=== PATIENT | male | born 1970 | race Caucasian/White ===

== ENCOUNTER 2025-06-03 08:46 | Outpatient (CLI) | payer OTHER | END 2025-06-03 08:47 | disposition home or self-care (01) | LOC: CSHMRI 08:46 | PROVIDERS: ATTEND Internal Medicine | DX: R79.89 Other specified abnormal findings of blood chemistry (principal); F04 Amnestic disorder due to known physiological condition; K82.8 Other specified diseases of gallbladder; K80.20 Calculus of gallbladder without cholecystitis without obstruction; K83.8 Other specified diseases of biliary tract; G31.9 Degenerative disease of nervous system, unspecified | CPT/HCPCS: 70551; 76705 ==

== ENCOUNTER → 2025-06-24 | Day surgery (SDC) | payer OTHER ==
[~2025-06-24] MED LIST: PROPOFOL 40 ML ONE
[2025-06-24 07:29] VITALS: BP 136/94; TEMP 97.9
== END ==
LOC: CSHSDC 06:35
PROVIDERS: ATTEND Specialist
PROC: 5A2204Z Restoration of Cardiac Rhythm, Single (ICD-10-PCS; principal; 2025-06-24)
PROC: B24BZZ4 Ultrasonography of Heart with Aorta, Transesophageal (ICD-10-PCS; principal; 2025-06-24)
DX: I48.91 Unspecified atrial fibrillation (principal); I10 Essential (primary) hypertension; Z88.0 Allergy status to penicillin; Z88.6 Allergy status to analgesic agent; Z79.899 Other long term (current) drug therapy
CPT/HCPCS: 92960; 93005; 93010; 93312; J2704

== ENCOUNTER 2025-07-02 03:00 | Emergency (ER) | payer OTHER ==
[2025-07-02 03:30] LABS: ALT (SGPT) 19 U/L (Less than 45); AST (SGOT) 34 U/L (11-34); Albumin 2.5 g/dL (3.1-4.5); Alkaline Phosphatase 65 U/L (40-110); Anion Gap 13 mmol/L (10-20); BUN (Urea Nitrogen) 16 mg/dL (8.4-25.7); Bilirubin, Total 2.5 mg/dL (0.3-1.2); Calc. Creatinine Clearance 0 mL/min (70-130); Calcium 7.8 mg/dL (7.8-10.44); Carbon Dioxide 21 mmol/L (22-29); Chloride 93 mmol/L (98-107); Globulin 3.5 g/dL (2.4-3.5); Glucose 96 mg/dL (70-105); Potassium 4.4 mmol/L (3.5-5.1); Sodium 123 mmol/L (136-145)
[2025-07-02 03:36] LABS: Troponin I Less than 0.010 ng/mL (< 0.028)
[2025-07-02 03:44] LABS: Burr Cells SLIGHT = 2-5 cells (100X) (0-1/hpf); Platelet Adequacy Comment Appears Decreased; Platelet Count 60 10x3/uL (150-450); Poikilocytosis SLIGHT = 6-15 cells (100X) (0-5/hpf); Target Cells SLIGHT = 2-5 cells (100X) (0-1/hpf)
[2025-07-02 03:45] LABS: #Basophils 0.06 10x3/uL (0.0-0.2); #Eosinophils 0.05 10x3/uL (0.0-0.5); #Monocytes 2.62 10x3/uL (0.0-1.1); #Neutrophils 9.57 10x3/uL (1.5-8.4); %Basophils 0.4 % (0.0-2.0); %Eosinophils 0.4 % (0.0-6.0); %Lymphocytes 8.5 % (18.0-47.0); %Monocytes 19.3 % (0.0-10.0); %Neutrophils 70.5 % (40.0-75.0); Hematocrit 28.9 % (38.8-50.0); Hemoglobin 10.1 g/dL (13.5-17.5); Mean Corpuscular Hemoglobin 35.7 pg (27.0-33.0); Mean Corpuscular Volume 102.1 fL (81.2-95.1); Red Blood Cell (RBC) Count 2.83 10x6/uL (4.32-5.72); White Blood Cell (WBC) Count 13.57 10x3/uL (3.5-10.5)
[2025-07-02] MEDS ORDERED: Droperidol 5 MG/2 ML VIAL ONE (05:11)
[2025-07-02 05:15] LABS: Anion Gap 9 mmol/L (10-20); BUN (Urea Nitrogen) 16 mg/dL (8.4-25.7); Calc. Creatinine Clearance 0 mL/min (70-130); Calcium 7.6 mg/dL (7.8-10.44); Carbon Dioxide 22 mmol/L (22-29); Chloride 94 mmol/L (98-107); Glucose 85 mg/dL (70-105); Lipase 12 U/L (8-78); Potassium 4.1 mmol/L (3.5-5.1); Sodium 121 mmol/L (136-145)
[2025-07-02 05:34] LABS: Glucose, Urine (Dipstick) Normal (Negative); Leukocyte 25 (Negative); Protein, Urine (Dipstick) 100 mg/dl (Neg-Trace); Specific Gravity, Urine 1.025 (1.005-1.030)
[2025-07-02 06:07] LABS: RBC/HPF 0-3 HPF (0-3)
[2025-07-02 06:08] LABS: Bacteria/HPF 4+ HPF (None Seen); CAUTI Indications for Culture Alt mental st,lethar; WBC/HPF 0-3 HPF (0-3)
[2025-07-02 06:10] LABS: Urine Culture Reflex No No
[2025-07-02] MEDS ORDERED: NOREPINEPHRINE 8 MG/250 ML-D5W 250 ML ONE (06:21)
[2025-07-02] MEDS ORDERED: Cefepime 2 GM VIAL ONE (06:42)
[2025-07-02 12:55] LABS: Anion Gap 10 mmol/L (10-20); BUN (Urea Nitrogen) 20 mg/dL (8.4-25.7); Calc. Creatinine Clearance 0 mL/min (70-130); Calcium 7.7 mg/dL (7.8-10.44); Carbon Dioxide 22 mmol/L (22-29); Chloride 96 mmol/L (98-107); Glucose 76 mg/dL (70-105); Potassium 4.1 mmol/L (3.5-5.1); Sodium 124 mmol/L (136-145)
== END 2025-07-02 14:24 | disposition short-term general hospital (02) ==
LOC: CSHERS 03:00
DX: E86.0 Dehydration (principal); F10.10 Alcohol abuse, uncomplicated; N39.0 Urinary tract infection, site not specified; R44.3 Hallucinations, unspecified; E87.1 Hypo-osmolality and hyponatremia; R25.1 Tremor, unspecified; I10 Essential (primary) hypertension; I48.91 Unspecified atrial fibrillation; K21.9 Gastro-esophageal reflux disease without esophagitis; Y90.0 Blood alcohol level of less than 20 mg/100 ml; Z79.899 Other long term (current) drug therapy
CPT/HCPCS: 36415; 70450; 71250; 74177; 76705; 80053; 80307; 81001; 82140; 83605; 83690; 83880; 84484; 85025; 87040; 93005; 93010; 96374; 96375; 96376; J0692; J1790; J2060; J3360; J3411